=== PATIENT | female | born 1970 | race Caucasian/White ===

== ENCOUNTER → 2021-03-02 | Outpatient (CLI) | payer BC ==
[2021-03-02 14:47] VITALS: BMI 55.9
[2021-03-02 16:24] LABS: HCT 41.8 % (34.0-46.0); HGB 13.5 gm/dL (11.4-16.0); MCH 27.9 pg (25.0-35.0); MCHC 32.3 g/dL (31.0-37.0); MCV 86.5 fL (80.0-100.0); Mean Platelet Volume 7.2; Platelet Count 366 k/uL (150-450); RBC 4.83 m/uL (3.80-5.40); RDW 13.6 % (11.5-15.5); WBC 6.5 k/uL (3.8-10.6)
[2021-03-03 00:57] LABS: Hemoglobin A1C 5.6 % (4.0-6.0)
[2021-03-03 00:59] LABS: African American GFR (CKD) 85.8 (60.0-200.0); Albumin 4.3 g/dL (3.80-4.90); Albumin/Globulin Ratio 1.79 (1.60-3.17); Anion Gap 10.9 mmol/L (4.00-12.00); Calcium 8.8 mg/dL (8.7-10.3); Carbon Dioxide 26.1 mmol/L (21.6-31.8); Globulin 2.4 g/dL (1.6-3.3); Potassium 4.8 mmol/L (3.5-5.5); Total Bilirubin 0.2 mg/dL (0.2-1.2); Total Protein 6.7 g/dL (6.2-8.2)
[2021-03-03 01:19] LABS: Folate, Serum 18.6 ng/mL
== END ==
LOC: BARWHC3 13:57
PROVIDERS: ATTEND Surgery
DX: E88.81 Metabolic syndrome and other insulin resistance (principal); E66.01 Morbid (severe) obesity due to excess calories; E55.9 Vitamin D deficiency, unspecified; Z68.43 Body mass index [BMI] 50.0-59.9, adult
CPT/HCPCS: 36415; 80053; 82306; 82607; 82746; 83036; 84425; 85027; 93005; 99203

== ENCOUNTER → 2021-04-06 | Outpatient (CLI) | payer BC ==
[2021-04-06 14:07] VITALS: BMI 38.7
== END | disposition home or self-care (01) ==
LOC: BARWHC3 08:34
PROVIDERS: ATTEND Surgery
DX: E66.01 Morbid (severe) obesity due to excess calories (principal); Z71.3 Dietary counseling and surveillance
CPT/HCPCS: 97804

== ENCOUNTER 2021-04-17 10:46 | Day surgery (SDC) | payer BC ==
[2021-04-14 12:20] VITALS: BMI 38.6
[2021-04-17 11:06] VITALS: RESP 16; TEMP 97.5
[2021-04-17] MEDS ORDERED: LIDOCAINE 1% (10MG/ML) FOR IV START INTRADERMA ONE (11:08)
[2021-04-17] MEDS ORDERED: LACTATED RINGERS 1,000 ML IV ONE (11:09)
[2021-04-17] MEDS ORDERED: LIDOCAINE 1% INJ 10MG/ML (20 ML MDV) ONE (12:43)
[2021-04-17] MEDS ORDERED: PROPOFOL 10 MG/ML 20 ML VIAL IV ONE (12:43)
--- NOTE | 2021-04-17 12:46 | P.GSHP ---
History of Present Illness H&P Date: 04/17/21 Chief Complaint: GERD Is a 50-year-old female with GERD. Patient assessed today for EGD. Past Medical History Past Medical History: GERD/Reflux, Osteoarthritis (OA) History of Any Multi-Drug Resistant Organisms: None Reported Past Surgical History: No Surgical Hx Reported Additional Past Surgical History / Comment(s): wisdom teeth removed Past Anesthesia/Blood Transfusion Reactions: No Reported Reaction Smoking Status: Never smoker - Past Family History Mother Family Medical History: Cancer Medications and Allergies Home Medications Medication Instructions Recorded Confirmed Type Ergocalciferol [Vitamin D2 (1250 50,000 unit PO WEEKLY 03/04/21 04/17/21 History Mcg = 92443 Iu)] Naltrexone HCl [Revia] 50 mg PO DAILY 03/04/21 04/17/21 History Vilazodone HCl [Viibryd] 40 mg PO HS 03/04/21 04/17/21 History buPROPion HCL [buPROPion HCL XL] 450 mg PO DAILY 03/04/21 04/17/21 History lamoTRIgine [LaMICtal] 150 mg PO DAILY 03/04/21 04/17/21 History Allergies Allergy/AdvReac Type Severity Reaction Status Date / Time No Known Allergies Allergy Verified 04/14/21 12:11 Surgical - Exam Vital Signs Temp Pulse Resp BP Pulse Ox 97.5 F L 89 16 141/77 97 04/17/21 11:04 04/17/21 11:04 04/17/21 11:04 04/17/21 11:04 04/17/21 11:04 - General well developed, well nourished, no distress - Eyes PERRL - ENT normal pinna - Neck no masses - Respiratory normal expansion - Cardiovascular Rhythm: regular - Abdomen Abdomen: soft, non tender Assessment and Plan Assessment: GERD. We'll perform EGD.
--- NOTE | 2021-04-17 12:57 | P.OP ---
Date of Procedure: 04/17/21 Preoperative Diagnosis: GERD Postoperative Diagnosis: Small hiatal hernia Procedure(s) Performed: EGD Anesthesia: MAC Surgeon: Noam Jeong Pathology: other (Antrum, esophagus) Condition: stable Disposition: PACU Description of Procedure: The patient's placed on the endoscopy table in the lateral position. He received IV sedation. The gastroscope some placed oropharynx passed in the esophagus into the stomach. The scope was then placed through the pylorus. The first and second portion of the duodenum appeared normal. Scope was then brought back the antrum this was mildly inflamed. Biopsies performed. Scope was unretroflexed and the remainder some appeared normal. The patient had a small hiatal hernia. There be evidence of esophagitis of the distal esophagus. This was biopsied. Proximal esophagus appeared normal. Scope was withdrawn for patient
[2021-04-17 13:13] VITALS: BP 133/90; PULSE 82
== END 2021-04-17 13:29 | disposition home or self-care (01) ==
LOC: ORWHC2ENDO 10:46
PROVIDERS: ATTEND Surgery
DX: K44.9 Diaphragmatic hernia without obstruction or gangrene (principal); K21.00 Gastro-esophageal reflux disease with esophagitis, without bleeding; K31.9 Disease of stomach and duodenum, unspecified; M19.90 Unspecified osteoarthritis, unspecified site; F39 Unspecified mood [affective] disorder; Z80.9 Family history of malignant neoplasm, unspecified
CPT/HCPCS: 43239; 88305; J2001; J2704

== ENCOUNTER → 2021-04-27 | Outpatient (CLI) | payer BC ==
[2021-04-27 14:05] VITALS: BP 140/85; PULSE 90; RESP 18; TEMP 98.7; BMI 38.2
--- NOTE | 2021-04-27 15:32 | P.HPBAR ---
Bariatric H&P - History & Physicial H&P Date: 04/27/21 History & Physicial: Visit/CC: follow up Patient initial contact: Initial weight: Initial weight in pounds: Height: 5 ft 1.5 in Initial BMI: Last weight: Current weight: 93.44 kg Current weight in pounds: 206.00 Current BMI: 38.2 [place] body weight (based on NIH guidelines): 48.761 kg Excess body weight loss: The patient is a 50 year-old F who presents for Bariatric Assessment. Patient presents today for presurgical consultation. Her weight is remain stable. She is Understanding sleeve gastrectomy. Her BMI is 38. Past Medical History Past Medical History: Osteoarthritis (OA) History of Any Multi-Drug Resistant Organisms: None Reported Past Surgical History: No Surgical Hx Reported Past Anesthesia/Blood Transfusion Reactions: No Reported Reaction Smoking Status: Never smoker Surgical - Exam Vital Signs Temp Pulse Resp BP 98.7 F 90 18 140/85 04/27/21 14:03 04/27/21 14:03 04/27/21 14:03 04/27/21 14:03 - General well developed, well nourished, no distress - Eyes PERRL - Abdomen Abdomen: soft, non tender Bariatric Assessment & Plan Plan: Morbid obesity. Patient's BMI is 30. She will follow-up in one month. Bariatric Checklist Checklist: Plan: Checklist: EGD: 1. Hiatal hernia: 2. H. Pylori: HgbA1c: Vitamin D: Smoking: Primary care physician referral: Dr. Kostas Marques Psychiatry clearance: Cardiology clearance: Sleep study: Diet journal: VTE risk score: VTE risk level: Rehab needs at discharge:
== END | disposition home or self-care (01) ==
LOC: BARWHC3 13:11
PROVIDERS: ATTEND Surgery
DX: E66.01 Morbid (severe) obesity due to excess calories (principal); Z68.30 Body mass index [BMI] 30.0-30.9, adult
CPT/HCPCS: 99211

== ENCOUNTER → 2021-11-11 | Outpatient (CLI) | payer BC ==
[2021-11-11 13:56] LABS: HCG,Qualitative Serum Not Detected
[2021-11-11 14:26] LABS: INR 0.9 (<1.2); Partial Thromboplastin Time 22.7 sec (22.0-30.0); Prothrombin Time 9.8 sec (9.0-12.0)
[2021-11-11 14:59] LABS: ALT 20 U/L (4-34); AST 24 U/L (14-36); African American GFR (CKD) 78 (>60 ml/min/1.73 sqM); Albumin/Globulin Ratio 1.4; Alkaline Phosphatase 77 U/L (38-126); Anion Gap 6 mmol/L; Blood Urea Nitrogen 14 mg/dL (7-17); Calcium 9.3 mg/dL (8.4-10.2); Carbon Dioxide 27 mmol/L (22-30); Chloride 105 mmol/L (98-107); Globulin 2.9 g/dL; Glucose 95 mg/dL (74-99); Non-African American GFR(CKD) 68 (>60 ml/min/1.73 sqM); Potassium 4.8 mmol/L (3.5-5.1); Sodium 138 mmol/L (137-145); Total Bilirubin 0.3 mg/dL (0.2-1.3); Total Protein 6.9 g/dL (6.3-8.2)
[2021-11-11 18:54] LABS: HCT 32.8 % (37.2-46.3); HGB 9.7 g/dL (12.0-15.0); MCH 24.2 pg (27.0-32.0); MCHC 29.6 g/dL (32.0-37.0); MCV 81.8 fL (80.0-97.0); Mean Platelet Volume 10.2 fL (9.5-12.2); NRBC Per 100 WBC 0 /100 WBCS (0.0-0.0); Platelet Count 472 X 10*3/uL (140-440); RBC 4.01 X 10*6/uL (4.10-5.20); RDW 14.9 % (11.5-14.5); WBC 6.54 X 10*3/uL (4.50-10.00)
[2021-11-11 19:52] LABS: BUN/Creat Ratio 14.27 Ratio (12.00-20.00)
== END | disposition home or self-care (01) ==
LOC: LABWHC1 11:57
PROVIDERS: ATTEND Nurse Practitioner Family
DX: Z01.812 Encounter for preprocedural laboratory examination (principal); E66.01 Morbid (severe) obesity due to excess calories
CPT/HCPCS: 36415; 80053; 84439; 84443; 84703; 85027; 85610; 85730

== ENCOUNTER → 2021-11-11 | Outpatient (CLI) | payer BC ==
--- NOTE | 2021-11-11 14:49 | XR ---
EXAMINATION TYPE: XR chest 2V DATE OF EXAM: 11/11/2021 COMPARISON: NONE HISTORY: Z01.818, E66.01 TECHNIQUE: Frontal and lateral views of the chest are obtained. FINDINGS: There is no focal air space opacity, pleural effusion, or pneumothorax seen. The cardiac silhouette size is within normal limits. Retrocardiac density with central lucency is present consist ent with hiatal hernia and partial intrathoracic stomach. Aorta is dense. The osseous structures are intact. Question some substernal nodularity. IMPRESSION: Possible lung nodularity, possible granulomatous disease, comparison with prior chest x- ray or alternatively chest CT could be performed to assess for lung nodules. Hiatal hernia.
== END | disposition home or self-care (01) ==
LOC: RADXRMAIN 12:51
PROVIDERS: ATTEND Nurse Practitioner Family
DX: Z01.818 Encounter for other preprocedural examination (principal); E66.01 Morbid (severe) obesity due to excess calories; K44.9 Diaphragmatic hernia without obstruction or gangrene
CPT/HCPCS: 71046

== ENCOUNTER → 2021-11-18 | Outpatient (CLI) | payer BC ==
--- NOTE | 2021-11-18 08:19 | CT ---
EXAMINATION TYPE: CT chest wo con DATE OF EXAM: 11/18/2021 INDICATION: F/U on lung nodule CT DLP: 558.20 mGy.cm Automated Exposure Control for Dose Reduction was Utilized. TECHNIQUE AND CONTRAST: CT scan of the chest without IV contrast administration. COMPARISON: X-ray dated 11/11/2021 FINDINGS: 5 mm nodule with slightly irregular margin is seen in the right middle lobe (image #36, series 4) wit h another faint groundglass nodule at the posterolateral aspect of the left lower lobe measuring 5 mm (image #41, series 4). Unremarkable lungs otherwise. Patent central airways. No pleural or pericardial effusion. No gross ca rdiomegaly. Minimal arterial atherosclerotic calcifications. No pathologically enlarged lymph nodes i n the chest. Large hiatal hernia containing almost half of the stomach. Fatty infiltration of the gastric wall which could be related to chronic gastritis. Cholelithiasis wi thout evidence of acute cholecystitis. Diverticulosis of the visualized portion of the colon. No aggr essive bone lesion. Degenerative changes of the lower cervical spine. IMPRESSION: 2 pulmonary nodules measuring up to 5 mm as described above. Considering the slight irregular margin of the right middle lobe nodule, a precautionary follow-up CT scan in 3 months is recommended. Other incidental findings as described above.
== END | disposition home or self-care (01) ==
LOC: RADCTMAIN 06:53
PROVIDERS: ATTEND Family Medicine
DX: R91.8 Other nonspecific abnormal finding of lung field (principal); I70.90 Unspecified atherosclerosis; K80.20 Calculus of gallbladder without cholecystitis without obstruction
CPT/HCPCS: 71250

== ENCOUNTER → 2022-02-22 | Outpatient (CLI) | payer BC ==
--- NOTE | 2022-02-22 13:10 | CT ---
EXAMINATION TYPE: CT chest wo con DATE OF EXAM: 02/22/2022 INDICATION: Solitary pulmonary nodule CT DLP: 674.9 mGy.cm Automated Exposure Control for Dose Reduction was Utilized. TECHNIQUE AND CONTRAST: CT scan of the chest without IV contrast. COMPARISON: CT dated 11/18/2021 FINDINGS: Stable middle lobe 5 mm nodule as well as the left lower lobe 5 mm nodule. Other scattered smaller ri ght lower lobe pulmonary nodules, stable. No new suspicious or progressive lung lesion. Patent trache a and main bronchi. No pleural effusion. No gross cardiomegaly. Minimal arterial atherosclerotic calcifications. No peric ardial effusion. No pathologically enlarged lymph nodes in the chest. Sizable hiatal hernia containing probably half of the stomach. Cholelithiasis without evidence of acu te cholecystitis. Colonic diverticulosis seen in the upper abdomen. Degenerative changes of the lower cervical spine. IMPRESSION: Stable scattered pulmonary nodules measuring up to 5 mm as described above. A final follow-up CT scan can be considered by November 2022. No new suspicious or progressive lung lesion. Other incidental find ings as described above.
== END | disposition home or self-care (01) ==
LOC: RADCTMAIN 10:25
PROVIDERS: ATTEND Family Medicine
DX: R91.8 Other nonspecific abnormal finding of lung field (principal)
CPT/HCPCS: 71250